=== PATIENT | female | born 1945 | race Caucasian/White ===

== ENCOUNTER 2022-01-31 19:54 | Observation (INO) ==
[2022-01-31] MEDS ORDERED: NS 0.9% 1000 ml BAG 1,000 ML IV ONE ×2 (20:35→23:23)
[2022-01-31 21:37] LABS: ABS Lymphocytes 1.2 10^3/ul (1.0-4.8); ABS Monocytes 0.8 10^3/ul (0-0.8); ABS Neutrophils 6.2 10^3/ul (1.5-7.7); Eosinophil % 0.3 %; Hematocrit 37 % (35-47); Hemoglobin 12.4 g/dL (12.0-16.0); Lymphocyte % 14.4 %; Mean Corpuscular HGB Conc 33 g/dL (31-36); Mean Corpuscular Hemoglobin 30 pg (27-31); Mean Corpuscular Volume 91 fL (80-97); Platelet Count 210 10^3/uL (150-450); Red Cell Distribution Width 13 % (10-15); White Blood Count 8.2 10^3/uL (3.5-10.8)
[2022-01-31 22:39] LABS: Albumin 3.6 g/dL (3.2-5.2); Albumin/Globulin Ratio 1.3 (1-3); C Reactive Protein 99.26 mg/L (<8.01); Calcium 8.8 mg/dL (8.6-10.3); Globulin 2.8 g/dL (2-4); Total Bilirubin 1.4 mg/dL (0.2-1.0); Total Protein 6.4 g/dL (6.4-8.9)
[2022-01-31 22:53] LABS: TSH Ultra Thyroid Stim Horm 0.76 mcIU/mL (0.34-5.60)
[2022-01-31 22:58] LABS: eGFR CKD-EPI 52.2 (>60)
[2022-02-01 01:51] LABS: Urine Appearance Clear; Urine Bilirubin Negative (Negative); Urine Blood Negative (Negative); Urine Color Yellow; Urine Glucose Negative (Negative); Urine Ketones Negative (Negative); Urine Specific Gravity 1.025 (1.005-1.030)
[2022-02-01 01:52] LABS: Urine Nitrite Negative (Negative); Urine Protein Negative (Negative); Urine Urobilinogen 1.0 (Negative) (Negative); Urine pH 5.5 (5.0-9.0)
[2022-02-01] MEDS ORDERED: NIRMATRELVIR/RITONAVIR 1 PAK eGFR 30-60 (see instructions) PO ONE (03:31)
[2022-02-01] MEDS ORDERED: Remdesivir 100 mg Vial 200 MG in NS 0.9% 250 ml 210 ML IV ONE (10:00)
[2022-02-01 10:43] LABS: INR 1.03 (0.89-1.11)
[2022-02-01] MEDS: Enoxaparin 40 MG/0.4 ML SYR SUBCUT SCH (12:17)
[2022-02-01] MEDS: Tobramycin 0.3% OPHTH.SOL 5 ML BOT (regular eye drops) BOTH EYES SCH ×4 (12:18→20:49)
[2022-02-02] MEDS: Tobramycin 0.3% OPHTH.SOL 5 ML BOT (regular eye drops) BOTH EYES SCH ×6 (03:30→23:40)
[2022-02-02 05:14] LABS: INR 1.05 (0.89-1.11)
[2022-02-02 05:58] LABS: Albumin 3.4 g/dL (3.2-5.2); Albumin/Globulin Ratio 1.2 (1-3); Calcium 8.7 mg/dL (8.6-10.3); Globulin 2.9 g/dL (2-4); Potassium 3.7 mmol/L (3.5-5.0); Total Bilirubin 1.2 mg/dL (0.2-1.0); Total Protein 6.3 g/dL (6.4-8.9); eGFR CKD-EPI 68.9 (>60)
[2022-02-02] MEDS: Enoxaparin 40 MG/0.4 ML SYR SUBCUT SCH (08:16)
[2022-02-02] MEDS: Remdesivir 100 mg Vial 100 MG in NS 0.9% 250 ml 230 ML IV SCH (08:49)
[2022-02-03] MEDS: Tobramycin 0.3% OPHTH.SOL 5 ML BOT (regular eye drops) BOTH EYES SCH ×4 (04:30→16:21)
[2022-02-03 06:32] LABS: INR 1.24 (0.89-1.11)
[2022-02-03 06:51] LABS: Albumin 3.2 g/dL (3.2-5.2); Albumin/Globulin Ratio 1.3 (1-3); Calcium 8.3 mg/dL (8.6-10.3); Globulin 2.5 g/dL (2-4); Potassium 3.4 mmol/L (3.5-5.0); Total Bilirubin 1.2 mg/dL (0.2-1.0); Total Protein 5.7 g/dL (6.4-8.9); eGFR CKD-EPI 64.5 (>60)
[2022-02-03] MEDS: Enoxaparin 40 MG/0.4 ML SYR SUBCUT SCH (07:54)
[2022-02-03] MEDS: Remdesivir 100 mg Vial 100 MG in NS 0.9% 250 ml 230 ML IV SCH (08:00)
[2022-02-03] MEDS ORDERED: Potassium Chloride LIQUID 20 MEQ/15 ML LIQUID PO ONE (09:04)
[2022-02-03 16:58] VITALS: BP 116/67
== END 2022-02-03 17:10 | disposition home or self-care (01) ==
LOC: ED 19:54 → EDHOLD 19:54 → MED 02-01 09:56
PROVIDERS: ADMIT Hospitalist; ATTEND Hospitalist